=== PATIENT | male | born 1990 | race Caucasian/White ===

== ENCOUNTER 2020-09-30 01:32 | Observation (INO) ==
[2020-09-30] MEDS ORDERED: KETOROLAC TROMETHAMINE 15 MG/ML VIAL IV STA (01:40)
[2020-09-30] MEDS ORDERED: SODIUM CHLORIDE 0.9% 500 ML IV STA (01:40)
--- NOTE | 2020-09-30 01:49 | Emergency Department Note ---
History of Present Illness General Chief complaint: Flank Pain Stated complaint: LEFT FLANK PAIN Time Seen by Provider: 09/30/20 01:40 History of Present Illness Maximum Pain Intensity: 2 This 30-year-old with a history of kidney stones presents to the ER complaining of left flank pain Location: Left flank Quality: Painful Severity: Moderate Duration: Today Timing: Today Context: Patient was concerned and came in Modifying factors: better with nothing; worse with nothing Patient denies chest pain, dyspnea, fevers, genitalia pain or any other medical complaints. Patient flew back from [place] a few days ago. He had 1 episodes of hemoptysis today. He did not think much of this. He did not really look at it. He does not smoke. His mother has a history of PE and is on Xarelto. He is not sure of the type of blood disorder she has. Home Medications Medication Instructions Recorded Confirmed Type ondansetron HCl 4 mg tablet 4 mg PO Q6H #10 tab 09/30/20 Rx (Zofran) oxycodone 5 mg tablet 5 mg PO Q6H PRN #14 tab 09/30/20 Rx Past Med/Surg History Medical History Kidney stone Surgical History (Updated 09/30/20 @ 01:47 by Rachel Romero PA-C) No pertinent past surgical history Social History Smoking Status: Never smoker Feels Safe at Home: Yes Review of Systems A total of 10 systems reviewed and were otherwise negative Physical Exam Vital Signs Vital Signs - 24 hr 09/30/20 01:36 09/30/20 03:44 Temperature 36.4 C L Temperature Source Temporal Artery Scan Pulse Rate 81 Pulse Rate [Finger] 71 Respiratory Rate 16 18 Blood Pressure 120/81 Blood Pressure [Right Arm] 131/76 Blood Pressure Mean 94 Blood Pressure Mean [Right Arm] 94 Blood Pressure Position Sitting Blood Pressure Position [Right Arm] Sitting Pulse Oximetry 98 100 Oxygen Delivery Method Room Air Room Air Sepsis Recent Fever Within 48 Hours No Sepsis New/Unexplained Change in Mental Status No Sepsis Action Taken by Nursing No Action Required VITALS: Vitals are noted on the nurse's note and reviewed by myself. Vital signs stable. GENERAL: Pleasant male, in no acute distress, nondiaphoretic, well-developed well-nourished. SKIN: The skin was without rashes, erythema, edema, or bruising. There is no tenting of the skin. Capillary reflex less than 2 seconds. HEAD: Normocephalic atraumatic. EARS: External auditory canals clear, EYES: Pupils equal round and reactive to light and accommodation. Conjunctivae without injection, sclerae without icterus. Extraocular movements intact. NOSE: Patent, turbinates without inflammation or discharge. MOUTH: Mucous membranes moist. Pharynx without erythema or exudate. Uvula midline. Airway patent. Tongue does not deviate. NECK: Supple without nuchal rigidity. No lymphadenopathy. No thyromegaly. Cervical spine is nontender. No JVD. HEART: Regular rate and rhythm without murmurs gallops or rubs. LUNGS: Clear to auscultation bilaterally without wheezes, rales or rhonchi. No retractions or accessory muscle use. ABDOMEN: Positive bowel sounds x 4. Normal tympanic percussion. Soft, nontender, without masses or organomegaly. Vargas sign negative. No guarding or rebound tenderness. No CVA tenderness MUSCULOSKELETAL: No muscle atrophy, erythema, or edema noted. NEURO: Patient was alert and oriented to person place and time. Normal sensation to light and sharp touch. No focal neurological deficits. Course Administered Medications Discontinued Medications Sodium Chloride (Nss) 500 mls @ 999 mls/hr IV .Q31M STA Stop: 09/30/20 02:10 Last Infusion: 09/30/20 02:19 Dose: 0 mls/hr Documented by: [id number] Admin: 09/30/20 01:48 Dose: 999 mls/hr Documented by: [id number] Ioversol (Optiray 320 125ml) 120 ml IV ONCE ONE Stop: 09/30/20 04:37 Last Admin: 09/30/20 04:37 Dose: 120 ml Documented by: [id number] Ketorolac Tromethamine (Ketorolac Tromethamine 15 Mg/Ml Vial) 10 mg IV NOW STA Stop: 09/30/20 01:41 Last Admin: 09/30/20 01:44 Dose: 10 mg Documented by: [id number] Medical Decision Making Medical Records Attestation: I reviewed the patient's medical records. Home Medications Current Medication List: was personally reviewed by me Laboratory Data Attestation: I reviewed the patient's lab results. Result diagrams: 09/30/20 01:49 09/30/20 01:49 Lab Results 09/30/20 09/30/20 09/30/20 Range/Units 01:46 01:46 01:49 WBC 10.15 (4.8-10.8) K/uL RBC 4.37 L (4.7-6.1) M/uL Hgb 14.1 (14.0-18.0) g/dL Hct 40.5 L (42-52) % MCV 92.7 (80-100) fL MCH 32.3 (25-34) pg MCHC 34.8 (32-36) g/dL RDW Std Deviation 41.5 (36.4-46.3) fL RDW Coeff of William 12.2 (11.5-14.5) % Plt Count 247 (130-400) K/uL MPV 9.4 (7.4-10.4) fL Sodium (136-145) mmol/L Potassium (3.5-5.1) mmol/L Chloride (98-107) mmol/L Carbon Dioxide (21-32) mmol/L Anion Gap (3-11) BUN (7-18) mg/dl Creatinine (0.6-1.4) mg/dl Est Cr Clr Drug Dosing ml/min Est GFR ( Amer) ml/min Est GFR (Non-Af Amer) ml/min BUN/Creatinine Ratio (10-20) Glucose (70-99) mg/dl Calcium (8.5-10.1) mg/dl Urine Color Yellow Urine Appearance Clear (Clear) Urine pH 6.5 (4.5-7.5) POC Urine pH 6 (4.5-7.5) Ur Specific [place] 1.007 (1.000-1.030) Urine Protein Negative (Negative) POC Urine Protein Negative (Negative) Urine Glucose (UA) Negative (Negative) POC Ur Glucose (UA) Normal (Normal) Urine Ketones Negative (Negative) POC Urine Ketones Negative (Negative) Urine Blood Negative (Negative) POC Urine Blood Negative (Negative) Urine Nitrite Negative (Negative) POC Urine Nitrite Negative (Negative) Urine Bilirubin Negative (Negative) POC Urine Bilirubin Negative (Negative) Urine Urobilinogen Negative (Negative) POC Urine Urobilinogen Normal (Normal) Ur Leukocyte Esterase Negative (Negative) POC U Leukocyte Esteras Negative (Negative) COVID-19 Eval Order 09/30/20 09/30/20 Range/Units 01:49 04:24 WBC (4.8-10.8) K/uL RBC (4.7-6.1) M/uL Hgb (14.0-18.0) g/dL Hct (42-52) % MCV (80-100) fL MCH (25-34) pg MCHC (32-36) g/dL RDW Std Deviation (36.4-46.3) fL RDW Coeff of William (11.5-14.5) % Plt Count (130-400) K/uL MPV (7.4-10.4) fL Sodium 137 (136-145) mmol/L Potassium 3.7 (3.5-5.1) mmol/L Chloride 108 H (98-107) mmol/L Carbon Dioxide 25 (21-32) mmol/L Anion Gap 4.0 (3-11) BUN 15 (7-18) mg/dl Creatinine 0.85 (0.6-1.4) mg/dl Est Cr Clr Drug Dosing 131.2 ml/min Est GFR ( Amer) 135.5 ml/min Est GFR (Non-Af Amer) 116.9 ml/min BUN/Creatinine Ratio 17.1 (10-20) Glucose 110 H (70-99) mg/dl Calcium 9.1 (8.5-10.1) mg/dl Urine Color Urine Appearance (Clear) Urine pH (4.5-7.5) POC Urine pH (4.5-7.5) Ur Specific [place] (1.000-1.030) Urine Protein (Negative) POC Urine Protein (Negative) Urine Glucose (UA) (Negative) POC Ur Glucose (UA) (Normal) Urine Ketones (Negative) POC Urine Ketones (Negative) Urine Blood (Negative) POC Urine Blood (Negative) Urine Nitrite (Negative) POC Urine Nitrite (Negative) Urine Bilirubin (Negative) POC Urine Bilirubin (Negative) Urine Urobilinogen (Negative) POC Urine Urobilinogen (Normal) Ur Leukocyte Esterase (Negative) POC U Leukocyte Esteras (Negative) COVID-19 Eval Order Covid19 at [facility] Imaging Data Attestation: I personally reviewed and interpreted this imaging study as follows: MDM Narrative Prior records/ancillary studies reviewed. Triage Nursing notes reviewed. Additional history obtained from the family. The patient's history was concerning for left flank pain. Differential diagnosis: Etiologies such as renal colic, appendicitis, diverticulitis, mesenteric ischemia, aortic pathology, infections, inflammatory bowel disease, PUD, biliary pathology, UTI, as well as others were entertained. Physical examination findings: As above. ER treatment provided: Toradol, Xarelto On reassessment the patient felt better. Diagnostic interpretation by me: EKG: Ordered for PE EKG: Normal sinus, normal intervals, no acute ST-T wave changes. Impression normal sinus interpreted by myself I think arrhythmia is unlikely. EKG shows normal sinus rhythm with no interval abnormalities such as QT prolongation or WPW. There are no findings to suggest Brugada syndrome. Cardiac monitoring in the emergency department reveals no tachycardic or bradycardic dysrhythmia. Hypertrophic cardiomyopathy was considered but there are no clear historical elements pointing toward this. EKG is not suggestive. The QRS voltage is not extremely large and there are no suggestive Q waves. The labs revealed stable Creatine. Urinalysis revealed There was no sign of UTI. Hypercoagulable work-up ordered Imaging studies: CT ABDOMEN & PELVIS Without Contrast: Trace left pleural effusion and left basilar groundglass infiltrate/consolidation. Small nodular densities also noted. Punctate nephrolithiasis. No hydronephrosis or ureteral stone. Small right renal hypodensity. Mildly thickened underdistended bladder. Prostatic calcifications. Fluid and air in the small bowel, query ileus or enteritis. Minimal rectosigmoid wall thickening may be related to underdistention. Numerous small osseous sclerotic foci. Correlate with history of malignancy. Radiologist: Elsa Corral M.D. CTA CHEST: Filling defect in the left lower lobe compatible with PE. No large central saddle embolus. No significant right heart strain. Trace left pleural effusion and left lower lobe pulmonary infarct or infiltrate and nodular densities. Small mediastinal and hilar lymph nodes. Osseous sclerotic foci again noted.. No aortic aneurysm or dissection. Radiologist: Elsa Corral M.D. US VENOUS BILATERAL LOWER EXTREMITIES: No evidence of DVT, as visualized. Radiologist: Elsa Corral M.D. PESI Score Age: 30 Male gender: 10 History of cancer: 0 Heart failure: 0 Chronic lung disease: 0 Pulse =110/min: 0 Systolic blood pressure <100 mmH Respiratory rate =30/min: 0 Temperature <36 Celcius: 0 Altered mental status: 0 Arterial oxygen saturation <90 percent: 0 Total: 40 Class I Low risk <66 Class II 66 to 85 Class III High risk 86 to 105 Class IV 106 to 125 Class V >125 Consultation: Medicine was consulted and they will evaluate for admission. Exam and history seem consistent with PE. Hypercoagulable work-up was ordered. Results reviewed with patient all questions were answered. Patient will be admitted to the medical service. I spoke to the patient's mother per his request and all questions were answered. Mother is unsure what type of hyperc oagulable states she has but is on chronic Xarelto without issue for the past 11 years. Apparently the patient states this morning after further questioning had an episode of small hemoptysis. No other episodes. No prior history of PE or DVT. Patient denied any leg swelling or chest pain or dyspnea. By the evaluation outlined above emergent etiologies such as appendicitis, diverticulitis, mesenteric ischemia, aortic pathology, infections, inflammatory bowel disease, PUD, biliary pathology, UTI, as well as others were deemed relatively unlikely. The pt informed about the findings as listed above. All questions were answered and pleased with the treatment. The chart was completed utilizing [employer] Speech voice recognition software. Grammatical errors, random word insertions, pronoun errors, and incomplete sentences are an occassional consequence of this system due to software limitations, ambient noise, and hardware issues. Any formal questions or concerns about the content, text, or information contained within the body of this dictation should be directly addressed to the physician outreach assistant for clarification. Impression & Plan Pulmonary embolism Discharge Plan Visit Data Chief Complaint: Flank Pain Stated Complaint: LEFT FLANK PAIN ED Provider: Noam Chan ED Midlevel Provider: Rachel Romero Discharge Problem: Pulmonary embolism Patient Disposition: Admitted As Inpatient Condition: Good Forms Stand Alone Forms: Work/School Release (ED), Virtual Emergency Department, Important Visit Information Prescriptions Prescriptions: New oxycodone 5 mg tablet 5 mg PO Q6H PRN (Reason: pain) Qty: 14 RF: 0 ondansetron HCl [Zofran] 4 mg tablet 4 mg PO Q6H Qty: 10 RF: 0 Referrals Referrals: Good Sanchez MD [Physician] - PCP,NO [Primary Care Provider] - Discharge Problem: Pulmonary embolism Qualifiers: Pulmonary embolism type: unspecified Chronicity: acute Acute cor pulmonale presence: unspecified Qualified Code(s): I26.99 - Other pulmonary embolism without acute cor pulmonale
[2020-09-30 01:50] LABS: POC Urine Bilirubin Negative (Negative); POC Urine Blood Negative (Negative); POC Urine Glucose Normal (Normal); POC Urine Ketones Negative (Negative); POC Urine Leukocytes Negative (Negative); POC Urine Nitrite Negative (Negative); POC Urine Protein Negative (Negative); POC Urine Urobilinogen Normal (Normal); POC Urine pH 6 (4.5-7.5)
[2020-09-30 01:54] LABS: Appearance Urine Clear (Clear); Bilirubin Urine Negative (Negative); Blood Urine Negative (Negative); Color Urine Yellow; Glucose Urine UA Negative (Negative); Ketones Urine Negative (Negative); Leukocyte Esterase Urine Negative (Negative); Nitrite Urine Negative (Negative); Protein Urine Negative (Negative); Specific Gravity Urine 1.007 (1.000-1.030); Urobilinogen Urine Negative (Negative); pH Urine 6.5 (4.5-7.5)
[2020-09-30 03:09] LABS: BUN Creatinine Ratio 17.1 (10-20); Calcium 9.1 mg/dl (8.5-10.1); Creatinine Clr Calc Pharmacy 131.2 ml/min; Est GFR (African American) 135.5 ml/min; Est GFR (Non-African American) 116.9 ml/min; Potassium 3.7 mmol/L (3.5-5.1)
[2020-09-30 03:10] LABS: Hematocrit (blood only) 40.5 % (42-52); Hemoglobin 14.1 g/dL (14.0-18.0); Mean Corpuscular Hemoglobin 32.3 pg (25-34); Mean Corpuscular Hgb Conc 34.8 g/dL (32-36); Mean Corpuscular Volume 92.7 fL (80-100); Mean Platelet Volume 9.4 fL (7.4-10.4); Platelet Count 247 K/uL (130-400); RDW Coefficient of Variation 12.2 % (11.5-14.5); RDW Standard Deviation 41.5 fL (36.4-46.3); Red Blood Count 4.37 M/uL (4.7-6.1); White Blood Count 10.15 K/uL (4.8-10.8)
[2020-09-30] MEDS ORDERED: OPTIRAY 320 125ml IV ONE (04:36)
[2020-09-30] MEDS ORDERED: RIVAROXABAN 15 MG TAB PO STA (04:46)
--- NOTE | 2020-09-30 05:19 | History & Physical Report ---
Date of Service September 30, 2020 Assessment & Plan (1) Pulmonary embolism on left: Plan: Left lower lobe pulmonary embolism/ infarction- Mother with history of extensive clotting Order hypercoagulable work-up Starting Xarelto 15 mg p.o. twice daily x21 days with first dose this evening, and then 20 mg daily Ordered bilateral venous Dopplers of lower extremities, that were negative. Left lower extremity calf enlargement and warm compared to the right (2) Embolism, pulmonary with infarction: Plan: See above History of Present Illness Chief Complaint: The patient presents to the emergency department with complaint of left posterior lower chest and flank pain that began 24 hours ago, with inability to sleep last evening, and that worsened as the day progressed today. Primary Care Provider: NO PCP The patient is a 30-year-old male with no significant past medical history, who presents to the emergency department with symptoms as noted above. He does have a history of his mother being in the ICU for about 1 week due to clots, but does not know if she had any hypercoagulability testing. Work-up in the emergency department this evening included a CT scan of abdomen/pelvis which showed left basilar groundglass infiltrate/consolidation, prostatic calcifications, possible ileus or enteritis and numerous small osseous sclerotic foci. CT angiography of chest showed left lower lobe compatible with PE a left lower lobe pulmonary infarct or infiltrate and nodular densities. There were small mediastinal and hilar lymph nodes. Home Medications Medication Instructions Recorded Confirmed Type ondansetron HCl 4 mg tablet 4 mg PO Q6H #10 tab 09/30/20 Rx (Zofran) oxycodone 5 mg tablet 5 mg PO Q6H PRN #14 tab 09/30/20 Rx Past Med/Surg History Medical History Kidney stone Surgical History (Updated 09/30/20 @ 01:47 by Rachel Romero PA-C) No pertinent past surgical history Social History Smoking Status: Never smoker Feels Safe at Home: Yes Review of Systems Review of Systems: The patient denies palpitations, shortness of breath, dyspnea on exertion, cough, lower extremity swelling, sore throat, fevers, chills, sweats, weight change, fatigue, nausea, vomiting, diarrhea , constipation, abdominal pain, pelvic pain, blood in urine or stool, dysuria, urinary frequency or urgency, lightheadedness, dizziness, headache, memory loss, loss of consciousness, rash, abnormal bruising or bleeding, imbalance, focal or generalized weakness, numbness or tingling in arms or legs, generalized arthralgias or myalgias, neck pain, or night sweats. The review of systems is otherwise negative other than for that already noted above, and at least 10 systems have been reviewed. Physical Exam Physical Exam: The patient is awake, alert and oriented 3, well developed and well nourished, normocephalic and atraumatic, lying in bed and in no acute distress. HEENT--PERRL, EOMI, mucous membranes and oropharynx normal. Neck--supple. No JVD. No bruits. Thyroid normal, trachea midline, no adenopathy. Heart--normal S1 and S2. No murmurs, rubs or gallops. Lungs--clear bilaterally, no respiratory distress, no accessory muscle use. Abdomen--normal bowel sounds and soft. Nontender. Nondistended, no hernias or masses, no organomegaly. Extremities--no cyanosis or clubbing. No edema. There are good distal pulses b/l. Left calf is approximately one half times the size of the right and is mildly warm Dermatologic--normal skin turgor, normal color, no abnormal lymph nodes, no rash. Neurologic--cranial nerves II through XII grossly intact. Rheumatologic--normal range of motion. Psychiatric--normal affect. Results & Data Results & Data ([facility]) Vital Signs (Past 12 Hours) Vital Signs Temp Pulse Pulse Resp BP BP Pulse Ox 09/30/20 03:44 71 18 131/76 100 09/30/20 01:36 97.5 F L 81 16 120/81 98 Laboratory Results Laboratory Results WBC 10.15 K/uL (4.8-10.8) 09/30/20 01:49 RBC 4.37 M/uL (4.7-6.1) L 09/30/20 01:49 Hgb 14.1 g/dL (14.0-18.0) 09/30/20 01:49 Hct 40.5 % (42-52) L 09/30/20 01:49 MCV 92.7 fL (80-100) 09/30/20 01:49 MCH 32.3 pg (25-34) 09/30/20 01:49 MCHC 34.8 g/dL (32-36) 09/30/20 01:49 RDW Std Deviation 41.5 fL (36.4-46.3) 09/30/20 01:49 RDW Coeff of William 12.2 % (11.5-14.5) 09/30/20 01:49 Plt Count 247 K/uL (130-400) 09/30/20 01:49 MPV 9.4 fL (7.4-10.4) 09/30/20 01:49 Sodium 137 mmol/L (136-145) 09/30/20 01:49 Potassium 3.7 mmol/L (3.5-5.1) 09/30/20 01:49 Chloride 108 mmol/L (98-107) H 09/30/20 01:49 Carbon Dioxide 25 mmol/L (21-32) 09/30/20 01:49 Anion Gap 4.0 (3-11) 09/30/20 01:49 BUN 15 mg/dl (7-18) 09/30/20 01:49 Creatinine 0.85 mg/dl (0.6-1.4) 09/30/20 01:49 Est Cr Clr Drug Dosing 131.2 ml/min 09/30/20 01:49 Est GFR ( Amer) 135.5 ml/min 09/30/20 01:49 Est GFR (Non-Af Amer) 116.9 ml/min 09/30/20 01:49 BUN/Creatinine Ratio 17.1 (10-20) 09/30/20 01:49 Glucose 110 mg/dl (70-99) H 09/30/20 01:49 Calcium 9.1 mg/dl (8.5-10.1) 09/30/20 01:49 Urine Color Yellow 09/30/20 01:46 Urine Appearance Clear (Clear) 09/30/20 01:46 Urine pH 6.5 (4.5-7.5) 09/30/20 01:46 POC Urine pH 6 (4.5-7.5) 09/30/20 01:46 Ur Specific [place] 1.007 (1.000-1.030) 09/30/20 01:46 Urine Protein Negative (Negative) 09/30/20 01:46 POC Urine Protein Negative (Negative) 09/30/20 01:46 Urine Glucose (UA) Negative (Negative) 09/30/20 01:46 POC Ur Glucose (UA) Normal (Normal) 09/30/20 01:46 Urine Ketones Negative (Negative) 09/30/20 01:46 POC Urine Ketones Negative (Negative) 09/30/20 01:46 Urine Blood Negative (Negative) 09/30/20 01:46 POC Urine Blood Negative (Negative) 09/30/20 01:46 Urine Nitrite Negative (Negative) 09/30/20 01:46 POC Urine Nitrite Negative (Negative) 09/30/20 01:46 Urine Bilirubin Negative (Negative) 09/30/20 01:46 POC Urine Bilirubin Negative (Negative) 09/30/20 01:46 Urine Urobilinogen Negative (Negative) 09/30/20 01:46 POC Urine Urobilinogen Normal (Normal) 09/30/20 01:46 Ur Leukocyte Esterase Negative (Negative) 09/30/20 01:46 POC U Leukocyte Esteras Negative (Negative) 09/30/20 01:46 COVID-19 Eval Order Covid19 at [facility] 09/30/20 04:24 Diagnostic Findings [facility] Patient: VIOLA BEARDEN (Male) : 89 Status: ER Date: 09/30/20 02:04 Room #: History: flank pain Slices: [phone] Priors: Tech: Martina Michael @ [phone] Exams: CT ABDOMEN & PELVIS Without Contrast Contrast: Accession Numbers: [id number] Referring Physician: REFERRED SELF Preliminary Findings Only See Final Report For Complete Findings CT ABDOMEN & PELVIS Without Contrast: Trace left pleural effusion and left basilar groundglass infiltrate/consolid ation. Small nodular densities also noted. Punctate nephrolithiasis. No hydronephrosis or ureteral stone. Small right renal hypodensity. Mildly thickened underdistended bladder. Prostatic calcifications. Fluid and air in the small bowel, query ileus or enteritis. Minimal rectosigmoid wall thickening may be related to underdistention. Numerous small osseous sclerotic foci. Correlate with history of malignancy. Radiologist: Elsa Corral M.D. Study ready at 02:09 and initial results transmitted at 02:19 *This report constitutes a preliminary interpretation only. Non-acute findings felt to be unrelated to the clinical presentation may not be discussed in this report. The study will be interpreted and a final report will be generated by the local Radiologist the following shift. To reach the hospital radiology department call [phone]. If a discrepancy is found between the preliminary and final interpretations of this study, please notify us via our Client Portal at [email or web address], [email or web address].You can also fax this report with a description of the discrepancy, or include the final report, to our daytime fax number [phone].If faxing, please indicate the severity of discrepancy using one of the following categories: [ ] 1 - Agree/Informational [ ] 2 - Unlikely to Affect Management [ ] 3 - Possible Eventual Change of Management [ ] 4 - Probable Immediate Change of Management For all other patient related information, please fax us at [phone]. [id number] [facility] Patient: VIOLA BEARDEN (Male) : 89 Status: ER Date: 09/30/20 03:01 Room #: History: back pain Slices: [phone] Priors: Tech: Martina Michael @ [phone] Exams: CTA CHEST Contrast: IV Amt: 120 ml optiray 320 Accession Numbers: [id number] Referring Physician: UNKNOWN UNKNOWN Preliminary Findings Only See Final Report For Complete Findings CTA CHEST: Filling defect in the left lower lobe compatible with PE. No large central saddle embolus. No significant right heart strain. Trace left pleural effusion and left lower lobe pulmonary infarct or infiltrate and nodular densities. Small mediastinal and hilar lymph nodes. Osseous sclerotic foci again noted.. No aortic aneurysm or dissection. Radiologist: lEsa Corral M.D. Study ready at 03:04 and initial results transmitted at 03:52 Communications: Clear Time Type Notes 09/30/20 04:07 Verify Receipt Verified receipt with ER Clerk Boudreuax on 09/30 04:07 (-04:00) *This report constitutes a preliminary interpretation only. Non-acute findings felt to be unrelated to the clinical presentation may not be discussed in this report. The study will be interpreted and a final report will be generated by the local Radiologist the following shift. To reach the hospital radiology department call [phone]. If a discrepancy is found between the preliminary and final interpretations of this study, please notify us via our Client Portal at [email or web address], [email or web address].You can also fax this report with a description of the discrepancy, or include the final report, to our daytime fax number [phone].If faxing, please indicate the severity of discrepancy using one of the following categories: [ ] 1 - Agree/Informational [ ] 2 - Unlikely to Affect Management [ ] 3 - Possible Eventual Change of Management [ ] 4 - Probable Immediate Change of Management For all other patient related information, please fax us at [phone]. [id number] Code Status & VTE Plan Code Status Full code VTE Prophylaxis Plan VTE Prophylaxis will be ordered: Yes PG Care Time/CCT Total # of Minutes Spent Total Time Spent with Patient: Total time spent is greater than 50% in coordination of care (as documented) at patient's floor/unit and/or counseling patient: Coding Level of Care Code 09162 Initial Inpt Care Lvl 2 Diagnoses Pulmonary embolism on left I26.99 Embolism, pulmonary with infarction I26.99
[2020-09-30 05:43] LABS: INR 1.1 (0.9-1.1); Prothrombin Time 11.2 Seconds (9.0-12.0)
[2020-09-30 05:52] LABS: Alanine Aminotransferase 31 U/L (12-78); Albumin Level 3.7 gm/dl (3.4-5.0); Alkaline Phosphatase 90 U/L (45-117); Aspartate Aminotransferase 23 U/L (15-37); Bilirubin Direct 0.2 mg/dl (0-0.2); Bilirubin,Total 0.6 mg/dl (0.2-1); Total Protein 7.3 gm/dl (6.4-8.2); Troponin I < 0.015 ng/ml (0-0.045)
[2020-09-30] MEDS ORDERED: ONDANSETRON INJ 2 MG/ML 2 ML VIAL IV PRN (06:32)
[2020-09-30] MEDS ORDERED: PATIENT'S ALLERGY INFO NEEDS ENTERED SCH (06:45)
--- NOTE | 2020-09-30 06:58 | Ultrasound Report ---
ULTRASOUND BILATERAL LOWER EXTREMITY VENOUS CLINICAL HISTORY: Pulmonary embolus.. COMPARISON STUDY: No priors. TECHNIQUE: Real-time, grayscale, and color Doppler sonography of the deep veins of the right and left lower extremity was performed from the inguinal crease to the calf. Compression and augmentation wer e utilized. FINDINGS: There is no sonographic evidence of deep venous thrombosis identified in the right or left lower extremity. The common femoral, superficial femoral, and popliteal veins are patent and normally compressible bilaterally. The greater saphenous vein and the profunda femoris vein at the junction w ith the common femoral vein are clear in both legs. The visualized calf veins are patent bilaterally. IMPRESSION: There is no sonographic evidence of deep venous thrombosis identified in the right or lef t lower extremity. ACT 112: Negative or not required by law. Electronically signed by: Eddy Howard M.D. 09/30/2020 6:57 AM
[2020-09-30] MEDS: ACETAMINOPHEN 325 MG TAB PO PRN ×3 (07:47→20:25)
--- NOTE | 2020-09-30 08:09 | CT Scan Report ---
CT OF THE ABDOMEN AND PELVIS WITHOUT CONTRAST CLINICAL HISTORY: flank pain COMPARISON STUDY: No previous studies for comparison. TECHNIQUE: Axial images of the abdomen and pelvis were obtained without IV contrast. Images were revi ewed in the axial, sagittal, and coronal planes. Automated exposure control was utilized for the josafat dy. A dose lowering technique was utilized adhering to the principles of ALARA. FINDINGS: A trace left pleural effusion is noted. Note is made of a left lower lobe subpleural opacit y which measures 5.1 cm. Several small right renal calculi measure up to 2 mm. There are no ureteral calculi. There is no hydronephrosis. Evaluation the remainder of the abdomen and pelvis is suboptimal on this unenhanced exam. The liver, spleen, adrenal glands and pancreas are unremarkable. There is n o evidence for a bowel obstruction. The appendix is normal. There is mild bladder wall thickening, ac centuated by underdistention. Innumerable small sclerotic foci predominantly within the pelvis and hi ps represent bone islands. IMPRESSION: 1. Several small right renal calculi. No ureteral calculi or hydronephrosis. 2. Trace left pleural effusion. Subpleural left lower lobe airspace opacity which could reflect a pul monary infarct or pneumonia. This was subsequently evaluated on contrast-enhanced chest CT. ACT 112: Negative or not required by law. Electronically signed by: Chris Rosa M.D. 09/30/2020 8:07 AM
--- NOTE | 2020-09-30 08:14 | CT Scan Report ---
CT ANGIOGRAPHY OF THE CHEST, PULMONARY EMBOLUS PROTOCOL CLINICAL HISTORY: flank pain,abnormal AB/P scan COMPARISON STUDY: No previous studies for comparison. TECHNIQUE: Following IV administration of 120 mL of Optiray, helical axial images of the chest were o btained utilizing the pulmonary embolus protocol. Maximal intensity projections and sagittal and cor onal reformats were viewed on an independent 3D workstation. IV contrast was administered without co mplication. Automated exposure control was utilized for the study. A dose lowering technique was ut ilized adhering to the principles of ALARA. FINDINGS: Note is made of a segmental pulmonary embolus within the lateral basal segment of the left lower lobe. Associated subpleural left lower lobe opacity reflects a pulmonary infarct. There is a t race left pleural effusion. There is no pneumothorax. No central pulmonary emboli are present. Size o f the heart is normal. There is no thoracic lymphadenopathy. Innumerable small sclerotic foci predomi nantly within the shoulders represent bone islands. 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 IMPRESSION: 1. Segmental pulmonary embolus within the lateral basal segment of the left lower lobe with associate d pulmonary infarct and trace left pleural effusion. 2. Innumerable small sclerotic skeletal foci, as described above. 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 ACT 112: Negative or not required by law. Electronically signed by: Chris Rosa M.D. 09/30/2020 8:13 AM
[2020-09-30] MEDS: RIVAROXABAN 15 MG TAB PO SCH ×2 (17:20→20:24)
--- NOTE | 2020-09-30 18:55 | Communication Note ---
Date of Service: September 30, 2020 Patient was seen and examined the same day therefore will not be billing for this encounter. Remains on room air. Anticoagulation with Xarelto. Mother has prothrombin 2 mutation.
[2020-10-01] MEDS: ACETAMINOPHEN 325 MG TAB PO PRN (03:25)
[2020-10-01 08:05] LABS: Basophils # (auto) 0.02 K/uL (0-0.2); Basophils % (auto) 0.2 %; Eosinophils # (auto) 0.03 K/uL (0-0.5); Eosinophils % (auto) 0.3 %; Hematocrit (blood only) 37.6 % (42-52); Hemoglobin 12.7 g/dL (14.0-18.0); Immature Granulocytes # (auto) 0.02 K/uL (0.00-0.02); Immature Granulocytes % (auto) 0.2 %; Lymphocytes % (auto) 17.2 %; Mean Corpuscular Hemoglobin 32.3 pg (25-34); Mean Corpuscular Hgb Conc 33.8 g/dL (32-36); Mean Corpuscular Volume 95.7 fL (80-100); Mean Platelet Volume 9.4 fL (7.4-10.4); Monocytes # (auto) 1.43 K/uL (0.11-0.59); Monocytes % (auto) 15.4 %; Neutrophils # (auto) 6.19 K/uL (1.4-6.5); Neutrophils % (auto) 66.7 %; Platelet Count 268 K/uL (130-400); RDW Coefficient of Variation 12.6 % (11.5-14.5); RDW Standard Deviation 44.2 fL (36.4-46.3); Red Blood Count 3.93 M/uL (4.7-6.1); White Blood Count 9.29 K/uL (4.8-10.8)
[2020-10-01 08:37] LABS: BUN Creatinine Ratio 11.7 (10-20); Calcium 8.8 mg/dl (8.5-10.1); Creatinine Clr Calc Pharmacy 129.7 ml/min; Est GFR (African American) 134.9 ml/min; Est GFR (Non-African American) 116.4 ml/min; Potassium 3.9 mmol/L (3.5-5.1)
[2020-10-01] MEDS: RIVAROXABAN 15 MG TAB PO SCH (08:42)
[2020-10-01] MEDS ORDERED: ACETAMINOPHEN 500 MG TAB PO SCH (09:00)
--- NOTE | 2020-10-01 09:51 | Discharge Summary ---
Date of Service October 01, 2020 Admission HPI Per Admitting Provider The patient is a 30-year-old male with no significant past medical history, who presents to the emergency department with symptoms as noted above. He does have a history of his mother being in the ICU for about 1 week due to clots, but does not know if she had any hypercoagulability testing. Work-up in the emergency department this evening included a CT scan of abdomen/pelvis which showed left basilar groundglass infiltrate/consolidation, prostatic calcifications, possible ileus or enteritis and numerous small osseous sclerotic foci. CT angiography of chest showed left lower lobe compatible with PE a left lower lobe pulmonary infarct or infiltrate and nodular densities. There were small mediastinal and hilar lymph nodes. Discharge Data Allergies Allergy/AdvReac Type Severity Reaction Status Date / Time No Known Allergies Allergy Unverified 09/30/20 06:44 Consultations 09/30/20 05:07 ED Decision to Admit Stat Ordered Studies 09/30/20 CT angio chest PE protocol Urgent 09/30/20 01:40 CT abd pelvis wo con Urgent 09/30/20 04:06 US venous doppler LE BI Urgent Discharge Plan Discharge Items Patient Disposition: Home - Self-Care Reason For Visit: PE, PULMONARY INFARCT Discharge Diagnosis: Pulmonary Emboli Condition on Discharge: Good Activity: Resume your previous activity Non-emergency contact: Primary Care Provider Call non-emergency contact if: you have any medication questions and your symptoms worsen Follow-up/Referrals: Lorna Bocanegra MD [Resident] - (1 week hospital follow up) PCP,NO [Primary Care Provider] - Diet: Regular Addtl Attending Provider Instructions: You were admitted to [facility] from September 30-2020 due to shortness of breath and chest pain. You were diagnosed with pulmonary embolism with pulmonary infarction. This was treated with Xarelto. You have been stable overnight and now medically stable for discharge. Please continue on Xarelto 15mg PO BID for 20 further days as prescribed and follow up with a [facility] physician further prescriptions (20mg once daily) after this for a total course of 6 months. Please also follow up for hypercoagulable workup. Pending Studies at Discharge: Yes Stand-Alone Forms: My [facility], Work/School Release, Smoking Cessation Medications and DC Order Prescriptions: New rivaroxaban 15 mg tablet 15 mg PO BID 20 Days Qty: 40 RF: 0 Discharge Orders: Discharge Order (Routine); Ordered 10/01/20 Ordered By: Jose Guadalupe Salazar Admission Data Admit Date/Time: 09/30/20 05:05 Attending Provider: Jose Guadalupe Salazar Admit Provider: Jhonny García Primary Care Provider: PCP,NO Other Providers: Jhonny García Coding
--- NOTE | 2020-10-01 18:33 | Electrocardiogram Report ---
Test Reason : Blood Pressure : / mmHG Vent. Rate : 073 BPM Atrial Rate : 073 BPM P-R Int : 130 ms QRS Dur : 098 ms QT Int : 358 ms P-R-T Axes : 000 142 111 degrees QTc Int : 394 ms Poor data quality, interpretation may be adversely affected Sinus rhythm Left posterior fascicular block Abnormal ECG No previous ECGs available Confirmed by Moe Coley ([id number]) on 10/01/2020 6:33:12 PM Referred By: REFERRED SELF Confirmed By:Moe Coley
[2020-10-02 23:57] LABS: Anti Cardiolipin Ab IgG <2.0 GPL-U/mL; Anti Cardiolipin Ab IgM <2.0 MPL-U/mL; Anti-Thrombin III Activity 78 % normal (80-135); Protein S Functional(Activity) 90 % (70-150)
[2020-10-03 05:21] LABS: B2 Glycoprotein IgG <2.0 U/mL (<20.0); B2 Glycoprotein IgM <2.0 U/mL (<20.0)
[2020-10-04 01:02] LABS: PTT LA Screen 41 sec (<=40)
[2020-10-04 12:52] LABS: Lupus Hex Phase (Rflxdonotord) Negative (Negative)
== END 2020-10-01 11:38 | disposition home or self-care (01) ==
LOC: ED 01:32 → INTOOBSV 05:05 → 2S 05:05 → SUATTDRO 05:05 → 2S 06:11